=== PATIENT | female | born 1945 | race Caucasian/White ===

== ENCOUNTER → 2017-03-22 | Outpatient (CLI) | payer OTHER, MEDICARE, BC ==
[~2017-03-22] MED LIST: ARICEPT10 MG PO; ASPIRIN LO-DOSE81 MG PO; BANOPHEN25 M1 PO; CALCIUM 500 +1 EAC3 PO; DILANTIN100 MG PO; DILANTIN30 MG PO; FISH OIL 1,2001 EAC2 PO; FOSAMAX70 MG PO; GLUCOSAMINE CH1 EAC6 PO; KEPPRA500 MG PO; KLONOPIN1 MG PO; MAGNESIUM500 MG PO; MOBIC15 MG PO; MULTI VITAMIN1 EACH PO; MYSOLINE50 M1 PO; NEURONTIN300 MG PO; NORCO 5-325 TA1 EACH PO; POTASSIUM99 M1 PO; PRINIVIL OR ZES10 MG PO
== END | disposition disaster alternative care site (69) ==
LOC: GOPD 03-14
PROC: 3E0S33Z Introduction of Anti-inflammatory into Epidural Space, Percutaneous Approach (ICD-10-PCS; principal; 2017-03-22)
PROC: 3E0S3BZ Introduction of Anesthetic Agent into Epidural Space, Percutaneous Approach (ICD-10-PCS; 2017-03-22)
DX: M54.12 Radiculopathy, cervical region (principal)
CPT/HCPCS: J1040